=== PATIENT | female | born 1960 | race Caucasian/White ===

== ENCOUNTER 2020-11-06 19:28 | Emergency (ER) | payer SELFPAY ==
[~2020-11-06] VITALS: Ht 152.4 cm; Wt 68.0 kg
[2020-11-06] MEDS ORDERED: MORPHINE SULFATE 4 MG/ML VIAL. IV ONE (20:00)
[2020-11-06] MEDS ORDERED: ONDANSETRON PF 4 MG/2 ML VIAL. IVP ONE (20:00)
[2020-11-06 20:16] LABS: BASO % 1 % (0-3); EOS # 0.2 x10^3/uL (0.0-0.7); EOS % 2 % (0-3); HEMATOCRIT 38.5 % (36.0-47.0); HEMOGLOBIN 13.2 g/dL (12.0-15.5); LYMPH # 3.5 x10^3/uL (1.0-4.8); LYMPH % 44 % (24-48); MEAN CORPUSCULAR HEMOGLOBIN 32 pg (25-35); MEAN CORPUSCULAR HGB CONC 34 g/dL (31-37); MEAN CORPUSCULAR VOLUME 94 fL (79-100); MONO # 0.6 x10^3/uL (0.0-1.1); MONO % 8 % (0-9); NEUT # 3.6 x10^3/uL (1.8-7.7); NEUT % 45 % (31-73); PLATELET COUNT 258 x10^3/uL (140-400); RED BLOOD COUNT 4.12 x10^6/uL (3.50-5.40); RED CELL DISTRIBUTION WIDTH 12.5 % (11.5-14.5); WHITE BLOOD COUNT 7.9 x10^3/uL (4.0-11.0)
[2020-11-06 20:26] LABS: CALCIUM 8.9 mg/dL (8.5-10.1); CREATININE 0.8 mg/dL (0.6-1.0); GFR 73.9
[2020-11-06 20:31] LABS: ALBUMIN/GLOBULIN RATIO 1.1 (1.0-1.7); TOTAL BILIRUBIN 0.2 mg/dL (0.2-1.0); TOTAL PROTEIN 7.6 g/dL (6.4-8.2)
--- NOTE | 2020-11-06 20:31 | RAD ---
EXAM: Chest, single view; pelvis and left hip, 3 views. HISTORY: Pain. COMPARISON: None. FINDINGS: Chest: A frontal view of the chest is obtained. There is no infiltrate, pleural effusion or pneumothorax. The heart is normal in size. Pelvis and left hip: A frontal view of the pelvis and frontal and frog-leg views of the left hip are obtained. There is no fracture, dislocation or subluxation. The femoral heads are normal in configura tion. IMPRESSION: No acute pulmonary or osseous finding. Electronically signed by: Jaleesa Cade MD (11/06/2020 8:28 PM) [facility]
--- NOTE | 2020-11-06 20:36 | PHYS DOC ---
General Adult EDM: Chief Complaint: SYNCOPE HPI: HPI: Patient is a 59 year old old female who takes no prescription medications presents via EMS for evaluation of syncopal episodes. Patient states she has chronic lower extremity muscle spasm and pain. Patient attributes pain due to sitting or standing too much. Patient states prior to arrival she was sitting too long and started having muscle cramps and pain in her left lower extremity. Patient states she stood up to stretch her legs. Family members and EMS state they witnessed 2 syncopal episodes that they suspect are related due to pain. At the time my examination patient is alert. She has her left leg straightened and hanging over the bed rail. She denies any head injury she has full range of motion with discomfort of the left lower extremity at the hip and the knee. Left lower extremity is neurovascularly intact. Patient does admit to heavy drinking she states she drank at least 4 beers and took some shots prior to arrival. Patient states she was celebrating the because she had to work the night prior. X-ray performed shows no acute fractures of left lower extremity chest x-ray negative. Review of Systems: Review of Systems: Constitutional: Denies fever or chills. [] Eyes: Denies change in visual acuity. [] HENT: Denies nasal congestion or sore throat. [] Respiratory: Denies cough or shortness of breath. [] Cardiovascular: Denies chest pain or edema. [] GI: Denies abdominal pain, nausea, vomiting, bloody stools or diarrhea. [] : Denies dysuria. [] Musculoskeletal: Denies back pain or joint pain. [] Integument: Denies rash. [] Neurologic: Denies headache, focal weakness or sensory changes. [] Endocrine: Denies polyuria or polydipsia. [] Lymphatic: Denies swollen glands. [] Psychiatric: Denies depression or anxiety. [] Heart Score: Risk Factors: Risk Factors: DM, Current or recent (<one month) smoker, HTN, HLP, family history of CAD, obesity. Risk Scores: Score 0 - 3: 2.5% MACE over next 6 weeks - Discharge Home Score 4 - 6: 20.3% MACE over next 6 weeks - Admit for Clinical Observation Score 7 - 10: 72.7% MACE over next 6 weeks - Early Invasive Strategies Current Medications: Current Medications Medications (Trade) Dose Ordered Sig/[facility] Start Time Stop Time Status Last Admin Dose Admin Morphine Sulfate (Morphine Sulfate) 4 mg 1X ONCE 11/06/20 20:00 11/06/20 20:01 DC 11/06/20 20:27 4 MG Ondansetron HCl (Zofran) 4 mg 1X ONCE 11/06/20 20:00 11/06/20 20:01 DC 11/06/20 20:26 4 MG Allergies: Allergies: Allergies Coded Allergies Type Severity Reaction Last Updated Verified No Known Drug Allergies 11/06/20 No Physical Exam: PE: Constitutional: Well developed, well nourished, no acute distress, non-toxic appearance. [] HENT: Normocephalic, atraumatic, bilateral external ears normal, oropharynx moist, no oral exudates, nose normal. [] Eyes: PERRLA, EOMI, conjunctiva normal, no discharge. [] Neck: Normal range of motion, no tenderness, supple, no stridor. [] Cardiovascular:Heart rate regular rhythm, no murmur [] Lungs & Thorax: Bilateral breath sounds clear to auscultation [] Abdomen: Bowel sounds normal, soft, no tenderness, no masses, no pulsatile masses. [] Skin: Warm, dry, no erythema, no rash. [] Back: No tenderness, no CVA tenderness. [] Extremities: No tenderness, no cyanosis, no clubbing, ROM intact, no edema. [] Neurologic: Alert and oriented X 3, normal motor function, normal sensory function, no focal deficits noted. [] Psychologic: Affect normal, judgement normal, mood normal. [] Current Patient Data: Labs: Laboratory Tests Test 11/06/20 19:50 White Blood Count 7.9 x10^3/uL (4.0-11.0) Red Blood Count 4.12 x10^6/uL (3.50-5.40) Hemoglobin 13.2 g/dL (12.0-15.5) Hematocrit 38.5 % (36.0-47.0) Mean Corpuscular Volume 94 fL (79-100) Mean Corpuscular Hemoglobin 32 pg (25-35) Mean Corpuscular Hemoglobin Concent 34 g/dL (31-37) Red Cell Distribution Width 12.5 % (11.5-14.5) Platelet Count 258 x10^3/uL (140-400) Neutrophils (%) (Auto) 45 % (31-73) Lymphocytes (%) (Auto) 44 % (24-48) Monocytes (%) (Auto) 8 % (0-9) Eosinophils (%) (Auto) 2 % (0-3) Basophils (%) (Auto) 1 % (0-3) Neutrophils # (Auto) 3.6 x10^3/uL (1.8-7.7) Lymphocytes # (Auto) 3.5 x10^3/uL (1.0-4.8) Monocytes # (Auto) 0.6 x10^3/uL (0.0-1.1) Eosinophils # (Auto) 0.2 x10^3/uL (0.0-0.7) Basophils # (Auto) 0.0 x10^3/uL (0.0-0.2) Sodium Level 144 mmol/L (136-145) Potassium Level 4.0 mmol/L (3.5-5.1) Chloride Level 107 mmol/L (98-107) Carbon Dioxide Level 22 mmol/L (21-32) Anion Gap 15 (6-14) H Blood Urea Nitrogen 10 mg/dL (7-20) Creatinine 0.8 mg/dL (0.6-1.0) Estimated GFR (Cockcroft-Gault) 73.9 BUN/Creatinine Ratio 13 (6-20) Glucose Level 103 mg/dL (70-99) H Calcium Level 8.9 mg/dL (8.5-10.1) Total Bilirubin 0.2 mg/dL (0.2-1.0) Aspartate Amino Transferase (AST) 28 U/L (15-37) Alanine Aminotransferase (ALT) 41 U/L (14-59) Alkaline Phosphatase 95 U/L (46-116) Total Protein 7.6 g/dL (6.4-8.2) Albumin 4.0 g/dL (3.4-5.0) Albumin/Globulin Ratio 1.1 (1.0-1.7) Laboratory Tests 11/06/20 19:50 Laboratory Tests 11/06/20 19:50 EKG: EKG: [] EKG performed at 00 0 hours heart rate [address] elevation no ST depression no acute [place] Radiology/Procedures: Radiology/Procedures: [] Course & Med Decision Making: Course & Med Decision Making Pertinent Labs and Imaging studies reviewed. (See chart for details) [] Patient was reevaluated. Patient ambulated with a normal steady gait. I suspect alcohol intoxication played some aspect with patient's syncope. Patient with frequent exacerbations of leg pain. Patient declined any pain medication. Patient was discharged home with naproxen and Flexeril. Dragon Disclaimer: Dragon Disclaimer: This electronic medical record was generated, in whole or in part, using a voice recognition dictation system. Departure Departure Impression: Primary Impression: Intoxication Additional Impressions: Syncope and collapse Right leg pain Disposition: 01 DC HOME SELF CARE/HOMELESS Condition: STABLE Referrals: NO PCP (PCP) Patient Instructions: Alcohol Intoxication, Sciatica, Syncope Scripts Cyclobenzaprine Hcl (CYCLOBENZAPRINE HCL) 10 Mg Tablet 10 MG PO TID for 10 Days, #30 TAB Prov: JENNIFER HURT DO 11/06/20 Naproxen (NAPROXEN) 500 Mg Tablet 1 TAB PO BID for pain for 30 Days, #20 TAB 0 Refills Prov: JENNIFER HURT DO 11/06/20 JENNIFER HURT DO Nov 06, 2020 20:36
[2020-11-06] MEDS ORDERED: IV NORMAL SALINE 1000ML BAG 1,000 ML IV ONE (21:30)
[2020-11-06] MEDS ORDERED: NAPR-514 PO (23:05)
[2020-11-06] MEDS ORDERED: CYCL10TA2 PO (23:05)
[2020-11-06 23:30] VITALS: BP 122/77
--- NOTE | 2020-11-07 16:06 | EKG ---
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
== END 2020-11-07 00:29 | disposition home or self-care (01) ==
LOC: ER 19:28
DX: R55 Syncope and collapse (principal); M79.604 Pain in right leg; F10.129 Alcohol abuse with intoxication, unspecified; Y90.6 Blood alcohol level of 120-199 mg/100 ml; G89.29 Other chronic pain
CPT/HCPCS: 36415; 71045; 73502; 80053; 84484; 85025; 85379; 93005; 96361; 96374; 96375; 99285; G0480; J2270; J2405; J7030